=== PATIENT | male | born 1960 | race American Indian/Alaskan Native ===

== ENCOUNTER 2017-10-29 05:02 | Emergency (ER) | payer BC ==
[2017-10-29 05:54] LABS: Hematocrit 42.7 % (35.5-45.6); Hemoglobin 14.1 gm/dl (11.8-15.2); Mean Corpuscular HGB Conc 33 % (32-34); Mean Corpuscular Hemoglobin 30 pg (28-32); Mean Corpuscular Volume 89 fl (84-94); Platelet Count 286 K/mm3 (140-440); Red Blood Count 4.78 M/mm3 (3.65-5.03); Red Cell Distribution Width 13.8 % (13.2-15.2)
[2017-10-29 06:09] LABS: Anion Gap 19 mmol/L; BUN/Creatinine Ratio 21; Blood Urea Nitrogen 17 mg/dL (9-20); Calcium 9.1 mg/dL (8.4-10.2); Carbon Dioxide 22 mmol/L (22-30); Glucose 124 mg/dL (75-100); Potassium 4.3 mmol/L (3.6-5.0); Sodium 141 mmol/L (137-145)
--- NOTE | 2017-10-29 06:32 | Emergency Department Report ---
ED Chest Pain HPI - General Chief Complaint: Chest Pain Stated Complaint: MED R/F Time Seen by Provider: 10/29/17 06:27 Source: patient Mode of arrival: Ambulatory Limitations: No Limitations - History of Present Illness Initial Comments: Patient is primarily here because his mail order medication didn't arrive in time. He has been noncompliant with his medicines for the past 3 days. Last night he states that at about 4:00 he experienced about 2-3 minutes of sharp left-sided chest pain in a similar amount of time of left leg pain. This is not recurred. There was no shortness of breath nausea vomiting sweating dizziness or diaphoresis. The patient does not have a history of the VTE. He is status post CABG. Subsequent to that he has been stented intra-graft 2. He reports no shortness of breath. MD Complaint: chest pain -: Gradual, minutes(s) Onset: during rest Pain Location: left chest Severity scale (0 -10): 7 Quality: sharp Consistency: constant, now resolved Improves With: nothing Worsens With: nothing re: denies: nausea, vomting, diaphoresis, dyspnea, sense of impending doom Other Symptoms: denies: cough, fever, syncope Treatments Prior to Arrival: none Aspirin use within the Past 7 Days: (1) Yes - Related Data Home Medications Medication Instructions Recorded Confirmed Last Taken Aspirin [Lo-Dose Aspirin EC] 81 mg PO DAILY 10/29/17 10/29/17 Unknown AtorvaSTATin [Lipitor] 80 mg PO DAILY 10/29/17 10/29/17 Unknown Clopidogrel [Plavix] 75 mg PO DAILY 10/29/17 10/29/17 Unknown Famotidine [Pepcid] 20 mg PO DAILY 10/29/17 10/29/17 Unknown Allergies Allergy/AdvReac Type Severity Reaction Status Date / Time No Known Allergies Allergy Unverified 10/29/17 05:19 Heart Score - HEART Score History: Slightly suspicious EKG: Normal Age: 45-65 Risk factors: > 3 risk factors or hx of atherosclerotic disease Troponin: < normal limit HEART Score: 3 - Critical Actions Critical Actions: 0-3 pts:0.9-1.7%risk of adverse cardiac event.Candidate for discharge ED Review of Systems ROS: Stated complaint: MED R/F Other details as noted in HPI Constitutional: denies: chills, fever Eyes: denies: eye pain, eye discharge, vision change ENT: denies: ear pain, throat pain Respiratory: denies: cough, shortness of breath, wheezing Cardiovascular: denies: chest pain, palpitations Endocrine: no symptoms reported Gastrointestinal: denies: abdominal pain, nausea, diarrhea Genitourinary: denies: urgency, dysuria Musculoskeletal: as per HPI (states also had a brief sharp pain in his left leg diffusely no paresthesias). denies: back pain, joint swelling, arthralgia Skin: denies: rash, lesions Neurological: denies: headache, weakness, paresthesias Psychiatric: denies: anxiety, depression Hematological/Lymphatic: denies: easy bleeding, easy bruising ED Past Medical Hx - Past Medical History Previous Medical History?: Yes Hx Hypertension: Yes Additional medical history: Cardiac Stents - Surgical History Past Surgical History?: Yes Hx Open Heart Surgery: Yes - Social History Smoking Status: Never Smoker Substance Use Type: None - Medications Home Medications: Home Medications Medication Instructions Recorded Confirmed Last Taken Type Aspirin [Lo-Dose Aspirin EC] 81 mg PO DAILY 10/29/17 10/29/17 Unknown History AtorvaSTATin [Lipitor] 80 mg PO DAILY 10/29/17 10/29/17 Unknown History Clopidogrel [Plavix] 75 mg PO DAILY 10/29/17 10/29/17 Unknown History Famotidine [Pepcid] 20 mg PO DAILY 10/29/17 10/29/17 Unknown History ED Physical Exam - General Limitations: No Limitations General appearance: alert, in no apparent distress - Head Head exam: Present: atraumatic, normocephalic - Eye Eye exam: Present: normal appearance. Absent: scleral icterus - ENT ENT exam: Present: mucous membranes moist - Neck Neck exam: Present: normal inspection - Respiratory Respiratory exam: Present: normal lung sounds bilaterally. Absent: respiratory distress - Cardiovascular Cardiovascular Exam: Present: regular rate, normal rhythm. Absent: systolic murmur, diastolic murmur, rubs, gallop - GI/Abdominal GI/Abdominal exam: Present: soft, normal bowel sounds. Absent: distended, tenderness, guarding, rebound, rigid - Rectal Rectal exam: Present: deferred - Extremities Exam Extremities exam: Present: normal inspection - Back Exam Back exam: Present: normal inspection - Neurological Exam Neurological exam: Present: alert, oriented X3, CN II-XII intact. Absent: motor sensory deficit - Psychiatric Psychiatric exam: Present: normal affect, normal mood - Skin Skin exam: Present: warm, dry, intact, normal color. Absent: rash - Other Other exam information: Neurovascular exam of the left lower extremity reveals normal pulses warm extremity and no motor or sensory deficit. ED Course Vital Signs 10/29/17 10/29/17 10/29/17 05:11 05:16 06:00 Temperature 98.1 F 98.1 F Pulse Rate 81 79 68 Respiratory 16 17 15 Rate Blood Pressure 124/85 124/85 111/69 O2 Sat by Pulse 95 99 96 Oximetry 10/29/17 10/29/17 10/29/17 06:01 06:30 07:00 Temperature Pulse Rate 81 69 Respiratory 16 18 17 Rate Blood Pressure 111/69 126/71 O2 Sat by Pulse 97 97 93 Oximetry - Reevaluation(s) Reevaluation #1: Patient has no complaints. He states that he will receive his medication by Sunday. His he is encouraged to follow up with his primary care provider. 10/29/17 07:56 ED Medical Decision Making - Lab Data Result diagrams: 10/29/17 05:35 10/29/17 05:35 Laboratory Results - last 24 hr 10/29/17 10/29/17 05:35 05:35 WBC 6.0 RBC 4.78 Hgb 14.1 Hct 42.7 MCV 89 MCH 30 MCHC 33 RDW 13.8 Plt Count 286 Eos % (Auto) Hospice Social Worker Sodium 141 Potassium 4.3 Chloride 104.0 Carbon Dioxide 22 Anion Gap 19 BUN 17 Creatinine 0.8 Estimated GFR > 60 BUN/Creatinine Ratio 21 Glucose 124 H Calcium 9.1 Troponin T < 0.010 Laboratory Results - last 24 hr 10/29/17 10/29/17 10/29/17 05:35 05:35 07:05 WBC 6.0 RBC 4.78 Hgb 14.1 Hct 42.7 MCV 89 MCH 30 MCHC 33 RDW 13.8 Plt Count 286 Eos % (Auto) Hospice Social Worker Add Manual Diff Complete Total Counted 100 Seg Neuts % (Manual) 48.0 Band Neutrophils % 0 Lymphocytes % (Manual) 32.0 Reactive Lymphs % (Man) 0 Monocytes % (Manual) 2.0 Eosinophils % (Manual) 18.0 H Basophils % (Manual) 0 Metamyelocytes % 0 Myelocytes % 0 Promyelocytes % 0 Blast Cells % 0 Nucleated RBC % Not Reportable Seg Neutrophils # Man 2.9 Band Neutrophils # 0.0 Lymphocytes # (Manual) 1.9 Abs React Lymphs (Man) 0.0 Monocytes # (Manual) 0.1 Eosinophils # (Manual) 1.1 H Basophils # (Manual) 0.0 Metamyelocytes # 0.0 Myelocytes # 0.0 Promyelocytes # 0.0 Blast Cells # 0.0 WBC Morphology Not Reportable Hypersegmented Neuts Not Reportable Hyposegmented Neuts Not Reportable Hypogranular Neuts Not Reportable Smudge Cells Not Reportable Toxic Granulation Not Reportable Toxic Vacuolation Not Reportable Dohle Bodies Not Reportable Pelger-Huet Anomaly Not Reportable Edvin Rods Not Reportable Platelet Estimate Appears normal Clumped Platelets Not Reportable Plt Clumps, EDTA Not Reportable Large Platelets Not Reportable Giant Platelets Not Reportable Platelet Satelliting Not Reportable Plt Morphology Comment Not Reportable RBC Morphology Not Reportable Dimorphic RBCs Not Reportable Polychromasia Not Reportable Hypochromasia Not Reportable Poikilocytosis Not Reportable Anisocytosis 1+ Microcytosis Not Reportable Macrocytosis Not Reportable Spherocytes Not Reportable Pappenheimer Bodies Not Reportable Sickle Cells Not Reportable Target Cells Not Reportable Tear Drop Cells Rare Ovalocytes 1+ Helmet Cells Not Reportable Carlson-Bramwell Bodies Not Reportable [place] Rings Not Reportable Burns Cells Not Reportable Bite Cells Not Reportable Crenated Cell Not Reportable Elliptocytes Rare Acanthocytes (Spur) Not Reportable Rouleaux Not Reportable Hemoglobin C Crystals Not Reportable Schistocytes Not Reportable Malaria parasites Not Reportable Eugenio Bodies Not Reportable Hem Pathologist Commnt No PT INR APTT D-Dimer Sodium 141 Potassium 4.3 Chloride 104.0 Carbon Dioxide 22 Anion Gap 19 BUN 17 Creatinine 0.8 Estimated GFR > 60 BUN/Creatinine Ratio 21 Glucose 124 H Calcium 9.1 Magnesium Total Bilirubin AST ALT Alkaline Phosphatase Total Creatine Kinase CK-MB (CK-2) CK-MB (CK-2) Rel Index Troponin T < 0.010 < 0.010 NT-Pro-B Natriuret Pep Total Protein Albumin Albumin/Globulin Ratio 10/29/17 10/29/17 10/29/17 07:05 07:05 07:05 WBC RBC Hgb Hct MCV MCH MCHC RDW Plt Count Eos % (Auto) Add Manual Diff Total Counted Seg Neuts % (Manual) Band Neutrophils % Lymphocytes % (Manual) Reactive Lymphs % (Man) Monocytes % (Manual) Eosinophils % (Manual) Basophils % (Manual) Metamyelocytes % Myelocytes % Promyelocytes % Blast Cells % Nucleated RBC % Seg Neutrophils # Man Band Neutrophils # Lymphocytes # (Manual) Abs React Lymphs (Man) Monocytes # (Manual) Eosinophils # (Manual) Basophils # (Manual) Metamyelocytes # Myelocytes # Promyelocytes # Blast Cells # WBC Morphology Hypersegmented Neuts Hyposegmented Neuts Hypogranular Neuts Smudge Cells Toxic Granulation Toxic Vacuolation Dohle Bodies Pelger-Huet Anomaly Edvin Rods Platelet Estimate Clumped Platelets Plt Clumps, EDTA Large Platelets Giant Platelets Platelet Satelliting Plt Morphology Comment RBC Morphology Dimorphic RBCs Polychromasia Hypochromasia Poikilocytosis Anisocytosis Microcytosis Macrocytosis Spherocytes Pappenheimer Bodies Sickle Cells Target Cells Tear Drop Cells Ovalocytes Helmet Cells Carlson-Bramwell Bodies [place] Rings Aly Cells Bite Cells Crenated Cell Elliptocytes Acanthocytes (Spur) Rouleaux Hemoglobin C Crystals Schistocytes Malaria parasites Eugenio Bodies Hem Pathologist Commnt PT 13.6 INR 0.99 APTT 29.7 D-Dimer 156.41 Sodium Potassium Chloride Carbon Dioxide Anion Gap BUN Creatinine Estimated GFR BUN/Creatinine Ratio Glucose Calcium Magnesium 1.90 Total Bilirubin 0.20 AST 26 ALT 31 Alkaline Phosphatase 76 Total Creatine Kinase 163 CK-MB (CK-2) 1.7 CK-MB (CK-2) Rel Index 1.0 Troponin T NT-Pro-B Natriuret Pep 50.40 Total Protein 6.5 Albumin 3.9 Albumin/Globulin Ratio 1.5 - EKG Data -: EKG Interpreted by Me EKG shows normal: sinus rhythm, intervals, QRS complexes, ST-T waves Rate: normal - EKG Data When compared to previous EKG there are: no significant change Interpretation: other (LAD) - Radiology Data Radiology results: report reviewed interpreted by me: No acute process Critical care attestation.: If time is entered above; I have spent that time in minutes in the direct care of this critically ill patient, excluding procedure time. ED Disposition Clinical Impression: Atypical chest pain, Left leg pain Disposition: TO HOME OR SELFCARE Is pt being admited?: No Does the pt Need Aspirin: No Condition: Stable Instructions: Chest Pain (ED) Additional Instructions: Follow-up with her primary care provider tomorrow. They may have samples. Return any acute change or problem. Monitor blood pressure and make sure it is high enough to take metoprolol. I would like the blood pressure to at least be over 110s systolic. Return as needed. Referrals: usual, primary care [Other] - EAMON Time of Disposition: 07:57
[2017-10-29 06:40] LABS: Anisocytosis 1+; Basophils % (Manual) 0 % (0.0-1.8); Blastocytes % (Manual) 0 %; Diff Status Complete; Elliptocytes Rare; Ovalocytes 1+; Tear Drop Cells Rare
--- NOTE | 2017-10-29 07:09 | XRay Report ---
FINAL REPORT EXAM: XR CHEST 1V AP HISTORY: hypertension TECHNIQUE: An AP view of the chest was submitted. FINDINGS: There are sternotomy sutures. The heart size is normal. There is no evidence of congestion or infiltrates. Pleural fluid is not seen. The bones and soft tissues do not show any acute changes. IMPRESSION: Previous bypass surgery changes. No active chest disease.
[2017-10-29 07:36] LABS: Magnesium 1.9 mg/dL (1.7-2.3)
[2017-10-29 07:40] LABS: Creatine Kinase MB 1.7 ng/mL (0.0-4.0); INR 0.99 (0.87-1.13)
[2017-10-29 07:41] LABS: Partial Thromboplastin Time 29.7 Sec. (24.2-36.6)
[2017-10-29 07:42] LABS: Alanine Aminotransferase 31 units/L (7-56); Albumin 3.9 g/dL (3.9-5); Albumin/Globulin Ratio 1.5 %; Alkaline Phosphatase 76 units/L (35-129); Creatine Kinase 163 units/L (55-170); Total Protein 6.5 g/dL (6.3-8.2)
[2017-10-29] MEDS ORDERED: BABY ASPIRIN PO ONE (07:54)
[2017-10-29] MEDS ORDERED: PLAVIX PO ONE (07:54)
[2017-10-29 08:01] LABS: Bilirubin,Direct < 0.2 mg/dL (0-0.2)
[2017-10-29 08:10] VITALS: BP 118/78
== END 2017-10-29 08:11 | disposition home or self-care (01) ==
LOC: ED 05:02
DX: R07.89 Other chest pain (principal); M79.605 Pain in left leg; I10 Essential (primary) hypertension; Z95.818 Presence of other cardiac implants and grafts; Z79.82 Long term (current) use of aspirin
CPT/HCPCS: 36415; 71010; 80048; 80074; 82550; 82553; 83735; 83880; 84484; 85007; 85025; 85379; 85610; 85730; 93005; 93010; A9270-GY

== ENCOUNTER 2019-09-04 16:02 | Observation (INO) | payer MEDICAID, OTHER ==
--- NOTE | 2019-09-04 16:14 | Emergency Department Report ---
Blank Doc - Documentation Documentation: 59-year-old male that presents with chest pain and SOB with radiation arm. This initial assessment/diagnostic orders/clinical plan/treatment(s) is/are subject to change based on patient's health status, clinical progression and re- assessment by fellow clinical providers in the ED. Further treatment and workup at subsequent clinical providers discretion. Patient/guardians urged not to elope from the ED as their condition may be serious if not clinically assessed and managed. Initial orders include: 1- Patient sent to MAIN ED for further evaluation and treatment 2- labs 3- CXR 4- EKG
--- NOTE | 2019-09-04 17:15 | XRay Report ---
CHEST 2 VIEWS INDICATION / CLINICAL INFORMATION: Chest Pain. COMPARISON: 10/29/17 FINDINGS: SUPPORT DEVICES: None. HEART / MEDIASTINUM: Stable. Median sternotomy wires and CABG clips are unchanged. LUNGS / PLEURA: No significant pulmonary or pleural abnormality. No pneumothorax. ADDITIONAL FINDINGS: No significant additional findings. IMPRESSION: 1. No acute findings. No significant change. Signer Name: Alanis Wang MD Signed: 09/04/2019 5:11 PM Workstation Name: [id number]
[2019-09-04 17:29] LABS: Basophils % (Auto) 0.6 % (0.0-1.8); Eosinophils # (Auto) 0.6 K/mm3 (0.0-0.4); Eosinophils % (Auto) 13.4 % (0.0-4.3); Hematocrit 42.1 % (35.5-45.6); Hemoglobin 13.9 gm/dl (11.8-15.2); Lymphocytes # (Auto) 1.4 K/mm3 (1.2-5.4); Lymphocytes % (Auto) 30.6 % (13.4-35.0); Mean Corpuscular HGB Conc 33 % (32-34); Mean Corpuscular Volume 89 fl (84-94); Monocytes # (Auto) 0.4 K/mm3 (0.0-0.8); Monocytes % (Auto) 8.4 % (0.0-7.3); Platelet Count 237 K/mm3 (140-440); Red Blood Count 4.72 M/mm3 (3.65-5.03); Red Cell Distribution Width 13.7 % (13.2-15.2)
[2019-09-04 17:37] LABS: Alanine Aminotransferase 27 units/L (7-56); Albumin 4.7 g/dL (3.9-5); BUN/Creatinine Ratio 19; Blood Urea Nitrogen 17 mg/dL (9-20); Calcium 9.3 mg/dL (8.4-10.2); Hemolysis Index 3
[2019-09-04 17:39] LABS: Partial Thromboplastin Time 28.9 Sec. (24.2-36.6)
[2019-09-04 18:04] LABS: INR 1.06 (0.87-1.13)
[2019-09-04 19:17] LABS: Bilirubin,Urine Negative (Negative); Blood,Urine Negative (Negative); Color,Urine Colorless (Yellow)
[2019-09-04 19:18] LABS: Protein,Urine <15 mg/dL mg/dL (Negative); Urobilinogen,Urine < 2.0 mg/dL (<2.0)
[2019-09-04] MEDS ORDERED: NITROGLYCERIN 2% OINT 1 GM TP ONE (22:41)
[2019-09-04] MEDS ORDERED: ASPIRIN 325 MG TAB PO ONE (22:48)
--- NOTE | 2019-09-04 22:48 | Emergency Department Report ---
HPI - General Chief Complaint: Chest Pain Time Seen by Provider: 09/04/19 16:13 - HPI HPI: Room 17 The patient is a 59-year-old male presenting with a chief complaint of chest pressure. The patient states his symptoms been present for 1 day after eating food. Patient complains of intermittent pressure to the left chest as well as pain in the left upper extremity. Patient denies shortness of breath, nausea/vomiting or diaphoresis. The patient states his last stress test occurred 2 years ago as well as last cardiac catheterization when he had a heart stent placed. Patient had a four-vessel bypass approximate 5 years ago. Location: [See above] Duration: [See above] Quality: [See above] Severity: [See above] Timing: [See above] Context: [See above] Modifying factors: [See above] Associated signs and symptoms: [see above] ED Past Medical Hx - Past Medical History Hx Hypertension: Yes Hx Heart Attack/AMI: Yes Additional medical history: Cardiac Stents - Surgical History Hx Open Heart Surgery: Yes - Family History Family history: no significant - Social History Smoking Status: Former Smoker (none 4 years) Substance Use Type: None (denies illicit drug use), Alcohol (occasional) - Medications Home Medications: Home Medications Medication Instructions Recorded Confirmed Last Taken Type Aspirin [Lo-Dose Aspirin EC] 81 mg PO DAILY 10/29/17 10/29/17 Unknown History AtorvaSTATin [Lipitor] 80 mg PO DAILY 10/29/17 10/29/17 Unknown History Clopidogrel [Plavix] 75 mg PO DAILY 10/29/17 10/29/17 Unknown History Famotidine [Pepcid] 20 mg PO DAILY 10/29/17 10/29/17 Unknown History ED Review of Systems ROS: Stated complaint: CHEST PAIN/SOB/ PAIN IN ARM Other details as noted in HPI Constitutional: denies: diaphoresis Eyes: denies: eye pain ENT: denies: throat pain Respiratory: no symptoms reported Cardiovascular: chest pain Endocrine: no symptoms reported Gastrointestinal: denies: nausea, vomiting Genitourinary: denies: dysuria Musculoskeletal: denies: back pain Neurological: denies: headache Physical Exam - Physical Exam Vital Signs: Vital Signs 09/04/19 09/04/19 09/04/19 16:13 20:29 20:31 Temperature 97.7 F Pulse Rate 78 76 75 Respiratory 20 16 24 Rate Blood Pressure 144/95 146/98 O2 Sat by Pulse 99 98 Oximetry 09/04/19 09/04/19 09/04/19 20:45 21:00 21:11 Temperature Pulse Rate 74 73 Respiratory 16 16 16 Rate Blood Pressure 146/98 128/80 O2 Sat by Pulse 97 96 100 Oximetry 09/04/19 09/04/19 09/04/19 21:15 21:31 21:45 Temperature Pulse Rate 75 73 69 Respiratory 14 16 15 Rate Blood Pressure 128/80 128/80 128/80 O2 Sat by Pulse 96 95 96 Oximetry 09/04/19 22:01 Temperature Pulse Rate 77 Respiratory 17 Rate Blood Pressure 137/85 O2 Sat by Pulse 97 Oximetry Physical Exam: GENERAL: The patient is well-developed well-nourished male lying on stretcher not appearing to be in acute distress. [] HEENT: Normocephalic. Atraumatic. Extraocular motions are intact. Patient has moist mucous membranes. NECK: Supple. Trachea midline CHEST/LUNGS: Clear to auscultation. There is no respiratory distress noted. HEART/CARDIOVASCULAR: Regular. There is no tachycardia. There is no gallop rub or murmur. ABDOMEN: Abdomen is soft, nontender. Patient has normal bowel sounds. There is no abdominal distention. SKIN: There is no rash. There is no edema. There is no diaphoresis. NEURO: The patient is awake, alert, and oriented. The patient is cooperative. The patient has normal speech MUSCULOSKELETAL: There is no evidence of acute injury. ED Course Vital Signs 09/04/19 09/04/19 09/04/19 16:13 20:29 20:31 Temperature 97.7 F Pulse Rate 78 76 75 Respiratory 20 16 24 Rate Blood Pressure 144/95 146/98 O2 Sat by Pulse 99 98 Oximetry 09/04/19 09/04/19 09/04/19 20:45 21:00 21:11 Temperature Pulse Rate 74 73 Respiratory 16 16 16 Rate Blood Pressure 146/98 128/80 O2 Sat by Pulse 97 96 100 Oximetry 09/04/19 09/04/19 09/04/19 21:15 21:31 21:45 Temperature Pulse Rate 75 73 69 Respiratory 14 16 15 Rate Blood Pressure 128/80 128/80 128/80 O2 Sat by Pulse 96 95 96 Oximetry 09/04/19 22:01 Temperature Pulse Rate 77 Respiratory 17 Rate Blood Pressure 137/85 O2 Sat by Pulse 97 Oximetry ED Medical Decision Making - Lab Data Result diagrams: 09/04/19 16:52 09/04/19 16:52 Laboratory Tests 09/04/19 09/04/19 09/04/19 16:52 16:52 16:52 WBC 4.6 RBC 4.72 Hgb 13.9 Hct 42.1 MCV 89 MCH 30 MCHC 33 RDW 13.7 Plt Count 237 Lymph % (Auto) 30.6 [place]kin % (Auto) 8.4 H Eos % (Auto) 13.4 H Baso % (Auto) 0.6 Lymph # 1.4 [place]kin # 0.4 Eos # 0.6 H Baso # 0.0 Seg Neutrophils % 47.0 Seg Neutrophils # 2.2 PT 13.1 INR 1.06 APTT 28.9 Sodium 140 Potassium 5.0 Chloride 102.1 Carbon Dioxide 25 Anion Gap 18 BUN 17 Creatinine 0.9 Estimated GFR > 60 BUN/Creatinine Ratio 19 Glucose 89 Calcium 9.3 Total Bilirubin 0.40 AST 23 ALT 27 Alkaline Phosphatase 70 Troponin T < 0.010 Total Protein 7.6 Albumin 4.7 Albumin/Globulin Ratio 1.6 Urine Color Urine Turbidity Urine pH Ur Specific Tucker Urine Protein Urine Glucose (UA) Urine Ketones Urine Blood Urine Nitrite Urine Bilirubin Urine Urobilinogen Ur Leukocyte Esterase Urine WBC (Auto) Urine RBC (Auto) 09/04/19 09/04/19 18:54 Unknown WBC RBC Hgb Hct MCV MCH MCHC RDW Plt Count Lymph % (Auto) [place] % (Auto) Eos % (Auto) Baso % (Auto) Lymph # [place] # Eos # Baso # Seg Neutrophils % Seg Neutrophils # PT INR APTT Sodium Potassium Chloride Carbon Dioxide Anion Gap BUN Creatinine Estimated GFR BUN/Creatinine Ratio Glucose Calcium Total Bilirubin AST ALT Alkaline Phosphatase Troponin T < 0.010 Total Protein Albumin Albumin/Globulin Ratio Urine Color Colorless Urine Turbidity Clear Urine pH 6.0 Ur Specific Tucker 1.003 Urine Protein <15 mg/dl Urine Glucose (UA) Negative Urine Ketones Negative Urine Blood Negative Urine Nitrite Negative Urine Bilirubin Negative Urine Urobilinogen < 2.0 Ur Leukocyte Esterase Negative Urine WBC (Auto) 1.0 Urine RBC (Auto) 0.0 - EKG Data -: EKG Interpreted by De EKG shows normal: sinus rhythm Rate: normal - EKG Data When compared to previous EKG there are: previous EKG unavailable Interpretation: nonspecific ST-T wave marielena (T-wave inversion in lead aVL) - Radiology Data Radiology results: report reviewed (chest x-ray), image reviewed (chest x-ray) interpreted by me: Chest x-ray-no focal infiltrate, no pneumothorax - Differential Diagnosis ACS, pericarditis, GERD Critical care attestation.: If time is entered above; I have spent that time in minutes in the direct care of this critically ill patient, excluding procedure time. ED Disposition Clinical Impression: Chest pain Disposition: OP ADMIT IP TO THIS HOSP Is pt being admited?: Yes Does the pt Need Aspirin: Yes Condition: Fair Instructions: Chest Pain (ED) Referrals: PRIMARY CARE,MD [Primary Care Provider] - 3-5 Days Time of Disposition: 22:47 (hospitalist paged (Dr Montano))
[2019-09-04] MEDS ORDERED: NITROGLYCERIN 0.4 MG TAB SUBL SL PRN (23:30)
[2019-09-04] MEDS: HEPARIN 5,000 UNIT/1 ML VIAL SUB-Q SCH (23:30)
[2019-09-04] MEDS ORDERED: MORPHINE 2 MG/1 ML INJ IV PRN (23:30)
[2019-09-04] MEDS ORDERED: ONDANSETRON 4 MG/2 ML INJ IV PRN (23:30)
[2019-09-04] MEDS ORDERED: ACETAMINOPHEN 325 MG TAB PO PRN (23:31)
[2019-09-05] MEDS ORDERED: HEPARIN 5,000 UNIT/1 ML VIAL ONE (00:22)
[2019-09-05 01:20] LABS: Creatine Kinase MB 2.1 ng/mL (0.0-4.0)
--- NOTE | 2019-09-05 05:52 | History and Physical Report ---
CHIEF COMPLAINT: Chest pain. HISTORY OF PRESENT ILLNESS: The patient is a 59-year-old male who said he has been having chest pain occurring intermittently as pressure feeling in the precordial area, going on for about 24 hours prior to presentation. Pain radiates to the left upper extremity. There is no history of nausea or vomiting and no history of diaphoresis. The patient also denied history of shortness of breath and also the patient denied history of dizziness, cough or fever and said that the chest pain is relieved with pain medication. PAST MEDICAL HISTORY: Pertinent for hypertension, coronary artery disease, status post myocardial infarction. PAST SURGICAL HISTORY: Pertinent for cardiac stent placement. FAMILY HISTORY: Noncontributory. SOCIAL HISTORY: The patient is a former cigarette smoker and quit about 4 years ago. The patient drinks alcohol occasionally and does not use illicit drug. MEDICATIONS: The patient is on aspirin 81 mg by mouth daily, Lipitor 80 mg by mouth daily, Plavix 75 mg by mouth daily, Pepcid 20 mg by mouth daily. ALLERGIES: There are no known drug allergies. REVIEW OF SYSTEMS: CONSTITUTIONAL: There is no fever, no chills, no diaphoresis. HEENT: There is no headache or sore throat. CARDIOVASCULAR SYSTEM: Chest pain is present. No orthopnea. RESPIRATORY SYSTEM: There is no shortness of breath or cough. GASTROINTESTINAL SYSTEM: There is no nausea, no vomiting, no abdominal pain, diarrhea or constipation. NEUROLOGICAL SYSTEM: There is no numbness, no dizziness, no altered mental status. MUSCULOSKELETAL SYSTEM: There is no joint pain or swelling. DERMATOLOGICAL SYSTEM: There is no skin rash or itching. GENITOURINARY SYSTEM: There is no dysuria, hematuria, or flank pain. Rest of system review is normal. PHYSICAL EXAMINATION: GENERAL: At the time of exam, the patient was found to be alert, oriented x 3 and not in acute distress. VITAL SIGNS: At the initial time of presentation showed temperature of 97.7 degrees Fahrenheit, pulse of 78, respirations 20, blood pressure 144/95, O2 sat of 99% on room air. HEENT: Showed pupils to be equal, round, reactive to light and accommodating. Extraocular muscles are intact. NECK: Supple with no JVD or carotid bruit. CARDIOVASCULAR SYSTEM: Showed normal first and second heart sounds with no gallops or murmurs. RESPIRATORY SYSTEM: Showed good air entry on both sides of the lungs with no abnormal breath sounds. GASTROINTESTINAL SYSTEM: Show abdomen to be full, soft, nontender with no organomegaly or rigidity. NEUROLOGIC: Shows no focal deficit. MUSCULOSKELETAL SYSTEM: Show no joint swelling or tenderness. DERMATOLOGICAL SYSTEM: Show no skin rash. GENITOURINARY SYSTEM: Showing no costovertebral angle tenderness. PERTINENT LABORATORY AND IMAGING STUDIES: The patient had chest x-ray done that came back showing no acute cardiopulmonary lesion. Lab results, the patient has CBC done that shows normal white count, normal hemoglobin and normal hematocrit with CBC differential showing elevated monocyte count of 8.4% and is elevated, eosinophil count of 13.4%. The patient's coagulations studies were unremarkable. Chemistry came back unremarkable. The patient's troponin level was unremarkable. Urinalysis was normal. DIAGNOSIS: Chest pain. PLAN OF CARE: 1. The patient will be placed on observation on telemetry. 2. The patient will have serial cardiac enzymes involving troponin, total CK, and CK-MB checked every 6 hours x 2 more levels. 3. The patient will be n.p.o. and will have Lexiscan stress test done this morning to rule out myocardial infarction. 4. The patient will be on aspirin 325 mg by mouth daily and will be on heparin 5000 units subcutaneous q. 12 hours. 5. The patient will be on morphine 2 mg IV every 5 minutes as needed for pain and will be on nitro paste 1 inch to anterior chest wall q.i.d. 6. The patient will be on IV Zofran 4 mg every 8 hours as needed for nausea and vomiting and will be on sublingual nitroglycerin 0.4 mg every 5 minutes for breakthrough chest pain. 7. The patient will be on Tylenol 650 mg by mouth every 4 hours for fever and headache and will be on oxygen by nasal cannula at 2 liters per minute. 8. The patient will be on IV morphine 2 mg every 5 minutes as needed for chest pain and IV Zofran 4 mg every 8 hours for nausea and vomiting. JOB# [id number] OCN/NTS
[2019-09-05] MEDS ORDERED: REGADENOSON 0.4 MG/5 ML INJ IV ONE ×2 (06:44→06:55)
[2019-09-05 06:51] LABS: Creatine Kinase MB 1.8 ng/mL (0.0-4.0)
[2019-09-05] MEDS: NITROGLYCERIN 2% OINT 1 GM TP SCH ×2 (07:14→11:51)
[2019-09-05] MEDS ORDERED: ASPIRIN 325 MG TAB PO SCH (10:00)
[2019-09-05 11:17] VITALS: BP 122/86
[2019-09-05] MEDS: HEPARIN 5,000 UNIT/1 ML VIAL SUB-Q SCH (11:52)
[2019-09-05] MEDS ORDERED: FLU VACC QUAD 2019-20 (3 YR UP)/PF 60 MCG/0.5 ML SYRINGE IM ONE (12:00)
--- NOTE | 2019-09-05 12:59 | Discharge Summary ---
Providers - Providers Date of Admission: 09/04/19 23:26 Date of discharge: 09/05/19 Attending physician: SANGEETA ROJAS Primary care physician: CERTIFIED ORTHOTIST Hospitalization Reason for admission: cp Condition: Fair Hospital course: 59-year-old male presented through the emergency department with chief complaint of chest pressure. The patient stated his symptoms been present for 1 day after eating food. Patient complained of intermittent pressure to the left chest as well as pain in the left upper extremity. Patient denied shortness of breath, nausea/vomiting or diaphoresis. The patient stated his last stress test occurred 2 years ago as well as last cardiac catheterization when he had a heart stent placed. Patient had a four-vessel bypass approximate 5 years ago. The patient was admitted with diagnosis of chest pain. EKG and Cardiac isoenzymes were found be negative. The patient underwent stress test and if found to be ne gative will be discharged home. Etiology of chest pain likely GERD given the history. Dedicated discharge time 32 minutes. Disposition: TO HOME OR SELFCARE Time spent for discharge: 32 - Discharge Diagnoses (1) GERD (gastroesophageal reflux disease) Status: Acute (2) Chest pain Status: Acute Core Measure Documentation - Palliative Care Palliative Care/ Comfort Measures: Not Applicable - Core Measures Any of the following diagnoses?: none Exam - Constitutional Vitals: Temp Pulse Resp BP Pulse Ox 98.2 F 80 18 122/86 97 09/05/19 11:14 09/05/19 11:51 09/05/19 11:14 09/05/19 11:51 09/05/19 11:14 General appearance: Present: no acute distress, well-nourished - EENT Eyes: Present: PERRL ENT: hearing intact, clear oral mucosa - Neck Neck: Present: supple, normal ROM - Respiratory Respiratory effort: normal Respiratory: bilateral: CTA - Cardiovascular Heart Sounds: Present: S1 & S2. Absent: rub, click - Extremities Extremities: pulses symmetrical, No edema Peripheral Pulses: within normal limits - Abdominal General gastrointestinal: Present: soft, non-tender, non-distended, normal bowel sounds Male genitourinary: Present: normal - Integumentary Integumentary: Present: clear, warm, dry - Musculoskeletal Musculoskeletal: gait normal, strength equal bilaterally - Psychiatric Psychiatric: appropriate mood/affect, intact judgment & insight - Neurologic Neurologic: CNII-XII intact, moves all extremities Plan Activity: advance as tolerated Weight Bearing Status: Weight Bear as Tolerated Diet: low fat, low cholesterol, low salt Follow up with: PRIMARY CARE, [Primary Care Provider] - 3-5 Days
--- NOTE | 2019-09-09 01:00 | Treadmill Report ---
THALLIUM STRESS TEST LEFT VENTRICLE: Left ventricle is mildly dilated. There is a small to moderate size, fixed basal inferior defect with no reversibility on the resting study. Gated analysis demonstrates moderately severe left ventricular systolic dysfunction with ejection fraction 36%. CONCLUSION: Evidence of a dilated cardiomyopathy, moderately severe left ventricular systolic dysfunction, ejection fraction 36%. Perfusion study demonstrates a fixed inferior defect, possibly due to diaphragmatic attenuation artifact. Cannot exclude a prior basal inferior myocardial infarction. There is no reversible ischemia demonstrated on this study. Clinical correlation is recommended. [facility]# [id number] [place]/NTS
== END 2019-09-05 14:30 | disposition home or self-care (01) ==
LOC: ED 16:02 → 4A 23:26
PROVIDERS: ADMIT Internal Medicine; ATTEND Hospitalist
DX: R07.89 Other chest pain (principal); I10 Essential (primary) hypertension; I25.10 Atherosclerotic heart disease of native coronary artery without angina pectoris; I25.2 Old myocardial infarction; K21.9 Gastro-esophageal reflux disease without esophagitis; Z87.891 Personal history of nicotine dependence; Z79.82 Long term (current) use of aspirin; Z79.02 Long term (current) use of antithrombotics/antiplatelets; Z95.1 Presence of aortocoronary bypass graft
CPT/HCPCS: 36415; 71046; 78452; 80053; 81001; 82550; 82553; 84484; 85025; 85610; 85730; 90686; 93005; 93010; 93017; 96372; 99284; A9502; G0378; J1644; J2785

== ENCOUNTER 2020-01-20 11:58 | Emergency (ER) | payer OTHER ==
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
[2020-01-20 16:12] VITALS: BP 145/97
== END 2020-01-20 16:14 | disposition home or self-care (01) ==
LOC: ED 11:58
DX: S16.1XXA Strain of muscle, fascia and tendon at neck level, initial encounter (principal); S93.402A Sprain of unspecified ligament of left ankle, initial encounter; S09.90XA Unspecified injury of head, initial encounter; I10 Essential (primary) hypertension; I25.2 Old myocardial infarction; Z79.82 Long term (current) use of aspirin; Z79.899 Other long term (current) drug therapy; Z95.5 Presence of coronary angioplasty implant and graft; Z87.891 Personal history of nicotine dependence; Z98.890 Other specified postprocedural states; V49.49XA Driver injured in collision with other motor vehicles in traffic accident, initial encounter; Y93.89 Activity, other specified; Y92.410 Unspecified street and highway as the place of occurrence of the external cause; Y99.8 Other external cause status
CPT/HCPCS: 70450; 72125; 99284

== ENCOUNTER 2022-07-29 21:02 | Emergency (ER) | payer SELFPAY ==
[2022-07-29 21:20] VITALS: BP 174/93
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
[2022-07-29 22:31] LABS: Basophils % (Auto) 0.7 % (0.0-1.8); Eosinophils # (Auto) 0.8 K/mm3 (0.0-0.4); Eosinophils % (Auto) 14.4 % (0.0-4.3); Hemoglobin 13.3 gm/dl (11.8-15.2); Lymphocytes # (Auto) 1.4 K/mm3 (1.2-5.4); Lymphocytes % (Auto) 26.6 % (13.4-35.0); Mean Corpuscular HGB Conc 34 % (32-34); Mean Corpuscular Volume 88 fl (84-94); Monocytes # (Auto) 0.3 K/mm3 (0.0-0.8); Monocytes % (Auto) 5.7 % (0.0-7.3); Platelet Count 230 K/mm3 (140-440); Red Blood Count 4.44 M/mm3 (3.65-5.03); Red Cell Distribution Width 13.5 % (13.2-15.2)
[2022-07-29 22:46] LABS: BUN/Creatinine Ratio 18; Blood Urea Nitrogen 16 mg/dL (9-20); Calcium 8.9 mg/dL (8.4-10.2); Hemolysis Index 24
--- NOTE | 2022-07-30 10:56 | Electrocardiograph Report ---
[facility] Test Date: 2022-07-29 Test Time: 21:22:03 Pat Name: HAYLIE GARZA Department: Room: Gender: M Customer Experience Associate: NURSE : 1960 Requested By: TIM BEE Order Number: [id number] Reading MD: Baldomero José Measurements Intervals [place] Rate: 67 P: 39 VT: 280 QRS: -62 QRSD: 110 T: 77 QT: 400 QTc: 424 Interpretive Statements Sinus rhythm Prolonged VT interval Probable left atrial enlargement Left ventricular hypertrophy No previous ECG available for comparison Electronically Signed On 07-30-2022 10:56:01 EDT by Baldomero José
== END 2022-07-30 12:01 | disposition left against medical advice (07) ==
LOC: ED 21:02
DX: R07.9 Chest pain, unspecified (principal); Z53.21 Procedure and treatment not carried out due to patient leaving prior to being seen by health care provider
CPT/HCPCS: 36415; 71046; 80048; 84484; 85025; 93005